=== PATIENT | female | born 1960 | race Caucasian/White ===

== ENCOUNTER 2020-08-16 22:27 | Emergency (ER) | payer BC, OTHER ==
[~2020-08-16] VITALS: Ht 162.6 cm; Wt 69.8 kg
--- NOTE | ~2020-08-16 | EMS ---
[address] [address] EMS Patient Care Report Name: VIANEY HAIR Room #: REG BEAU Gutierres#: [id number] Admission: 08/16/20 Attend Phys: Discharge: Date of : 58 Report #: [id number] THIS REPORT FOR: //name// Report Transmitted: 08/16/2020 23:59 EMS Care Summary [facility] MED-ACT Incident [id number] @ 08/16/2020 21:51 Incident Location [address] [place] [address] Patient VIANEY BARRIENTOS Female, 60 Years 1960 Patient Address [address] [address] Patient History Hypertension (HTN), Patient Allergies No known allergies, Patient Medications Metoprolol, Chief Complaint syncope episode Disposition Transported No Lights/[place] Dispatch Reason Unconscious/Fainting Transported To [facility] Narrative EMS was called to the scene of a person who had a syncope episode. Upon arrival the patient was lying on the kitchen floor conscious and breathing. On scene FD advised their initial BP was in the 70's. Family advised she had one cocktail and a couple of hits off of a blunt, then an hour later was walking [facility] [address] [place] [address] EMS Patient Care Report Name: VIANEY HAIR Room #: REG BEAU Gutierres#: [id number] Admission: 08/16/20 Attend Phys: Discharge: Date of : 58 Report #: [id number] through the kitchen and just passed out. The patient advised she was dizzy. EMS assessed the patient and found she had no radial pulse. EMS loaded her on the cot and took her to the ambulance. EMS established a 18g IV in the right AC and performed a 12 lead ECG with no ST elevation found. EMS provided an ice pack for the patient's forehead and reassessed her. EMS started a fluid bolus of NS for hypotension and transported the patient to [facility] for further evaluation. Initial Vitals @22:23P: 82,R: 18,BP: 100/64,Pain: 6/10,GCS: 15,SpO2: 98,Revised Trauma: 12,AL Suspected: false @22:17P: 82,R: 18,BP: 95/58,Pain: 6/10,GCS: 15,SpO2: 94,Revised Trauma: 12,AL Suspected: false @22:16P: 78,R: 18,Pain: 6/10,GCS: 15,SpO2: 95,AL Suspected: false @22:11P: 84,R: 18,BP: 81/49,Pain: 6/10,GCS: 15,SpO2: 97,Revised Trauma: 11, @PTAP: 85,R: 18,BP: 79/52,Pain: 6/10,GCS: 15,Glucose: 112,SpO2: 96,Revised Trauma: 11,AL Suspected: false Assessments @22:00MENTAL:No Abnormalities,SKIN:No Abnormalities,HEENT:Head/Face: Swelling,Neck/Airway: No Abnormalities,LUNG SOUNDS:General: No Abnormalities,Left Upper: No Abnormalities,Right Upper: No Abnormalities,Left Lower: No Abnormalities,Right Lower: No Abnormalities,ABDOMEN:General: No Abnormalities,Left Upper: No Abnormalities,Right Upper: No Abnormalities,Left Lower: No Abnormalities,Right Lower: No Abnormalities,PELVIS//GI:No Abnormalities,EXTREMITIES:Left Arm: No Abnormalities,Right Arm: No Abnormalities,Left Leg: No Abnormalities,Right Leg: No Abnormalities,PULSE:NEURO:No Abnormalities, Impression Syncope / Fainting Procedures @22:15Normal Saline (.9% NaCl) 200cc (18 ga) Site: Antecubital-RightResponse: ImprovedSucceeded@22:1512-Lead ECG@22:1612-Lead ECG@22:00ALS AssessmentResponse: 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,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,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: 85,RR: 18 R,SPO2: 96 Ox,ETCO2: ,B,PAIN: 6,GCS: 15, 21:49,Call Received 21:49,Psap Call 21:51,Dispatched 21:52,En Route 21:59,On Scene 22:00,At Patient 22:00,ALS Assessment,Response: 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, [facility] [address] [address] EMS Patient Care Report Name: JSVIANEY COOMBS Room #: REG Nenita#: [id number] Admission: 08/16/20 Attend Phys: Discharge: Date of : 58 Report #: [id number] 22:11,BP: 81/49 M,PULSE: 84,RR: 18 R,SPO2: 97 Ox,ETCO2: ,BG: ,PAIN: 6,GCS: 15, 22:15,Normal Saline (.9% NaCl) 200cc 18 ga Site: Antecubital-Right,Response: ImprovedSucceeded, 22:15,12-Lead ECG, 22:16,12-Lead ECG, 22:16,BP: / M,PULSE: 78,RR: 18 R,SPO2: 95 Ox,ETCO2: ,BG: ,PAIN: 6,GCS: 15, 22:17,BP: 95/58 M,PULSE: 82,RR: 18 R,SPO2: 94 Ox,ETCO2: ,BG: ,PAIN: 6,GCS: 15, 22:17,Depart Scene 22:23,At Destination 22:23,BP: 100/64 M,PULSE: 82,RR: 18 R,SPO2: 98 Ox,ETCO2: ,BG: ,PAIN: 6,GCS: 15, 22:43,Call Closed Disclaimer v1.1 Copyright 2020 [employer] This EMS Care Summary contains data elements from the applicable legal record (which may be displayed differently). It is designed to provide pertinent information for the following purposes: continuity of care, clinical quality, and state data reporting. The complete legal record is available to ED staff and administrators of the receiving hospital in [employer]'s Patient Tracker. All data is provided "as is."
--- NOTE | ~2020-08-16 | EMS ---
[address] [address] EMS Patient Care Report Name: VIANEY HAIR Room #: REG BEAU Gutierres#: [id number] Admission: 08/16/20 Attend Phys: Discharge: Date of : 58 Report #: [id number] THIS REPORT FOR: //name// Report Transmitted: 08/16/2020 23:07 EMS Care Summary [facility] MED-ACT Incident [id number] @ 08/16/2020 21:51 Incident Location [address] [place] [address] Patient VIANEY BARRIENTOS Female, 60 Years 1960 Patient Address [address] [address] Patient History Hypertension (HTN), Patient Allergies No known allergies, Patient Medications Metoprolol, Chief Complaint syncope episode Disposition Transported No Lights/[place] Dispatch Reason Unconscious/Fainting Transported To [facility] Narrative EMS was called to the scene of a person who had a syncope episode. Upon arrival the patient was lying on the kitchen floor conscious and breathing. On scene FD advised their initial BP was in the 70's. Family advised she had one cocktail and a couple of hits off of a blunt, then an hour later was walking [facility] [address] [place] [address] EMS Patient Care Report Name: VIANEY HAIR Room #: REG BEAU Gutierres#: [id number] Admission: 08/16/20 Attend Phys: Discharge: Date of : 58 Report #: [id number] through the kitchen and just passed out. The patient advised she was dizzy. EMS assessed the patient and found she had no radial pulse. EMS loaded her on the cot and took her to the ambulance. EMS established a 18g IV in the right AC and performed a 12 lead ECG with no ST elevation found. EMS provided an ice pack for the patient's forehead and reassessed her. EMS started a fluid bolus of NS for hypotension and transported the patient to [facility] for further evaluation. Initial Vitals @22:23P: 82,R: 18,BP: 100/64,Pain: 6/10,GCS: 15,SpO2: 98,Revised Trauma: 12,FL Suspected: false @22:17P: 82,R: 18,BP: 95/58,Pain: 6/10,GCS: 15,SpO2: 94,Revised Trauma: 12,FL Suspected: false @22:16P: 78,R: 18,Pain: 6/10,GCS: 15,SpO2: 95,FL Suspected: false @22:11P: 84,R: 18,BP: 81/49,Pain: 6/10,GCS: 15,SpO2: 97,Revised Trauma: 11, @PTAP: 85,R: 18,BP: 79/52,Pain: 6/10,GCS: 15,Glucose: 112,SpO2: 96,Revised Trauma: 11,FL Suspected: false Assessments @22:00MENTAL:No Abnormalities,SKIN:No Abnormalities,HEENT:Head/Face: Swelling,Neck/Airway: No Abnormalities,LUNG SOUNDS:General: No Abnormalities,Left Upper: No Abnormalities,Right Upper: No Abnormalities,Left Lower: No Abnormalities,Right Lower: No Abnormalities,ABDOMEN:General: No Abnormalities,Left Upper: No Abnormalities,Right Upper: No Abnormalities,Left Lower: No Abnormalities,Right Lower: No Abnormalities,PELVIS//GI:No Abnormalities,EXTREMITIES:Left Arm: No Abnormalities,Right Arm: No Abnormalities,Left Leg: No Abnormalities,Right Leg: No Abnormalities,PULSE:NEURO:No Abnormalities, Impression Syncope / Fainting Procedures @22:15Normal Saline (.9% NaCl) 200cc (18 ga) Site: Antecubital-RightResponse: ImprovedSucceeded@22:1512-Lead ECG@22:1612-Lead ECG@22:00ALS AssessmentResponse: 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 [address] EMS Patient Care Report Name: VIANEY HAIR Room #: REG BEAU Gutierres#: [id number] Admission: 08/16/20 Attend Phys: Discharge: Date of : 58 Report #: [id number] 22:11,BP: 81/49 M,PULSE: 84,RR: 18 R,SPO2: 97 Ox,ETCO2: ,BG: ,PAIN: 6,GCS: 15, 22:15,Normal Saline (.9% NaCl) 200cc 18 ga Site: Antecubital-Right,Response: ImprovedSucceeded, 22:15,12-Lead ECG, 22:16,12-Lead ECG, 22:16,BP: / M,PULSE: 78,RR: 18 R,SPO2: 95 Ox,ETCO2: ,BG: ,PAIN: 6,GCS: 15, 22:17,BP: 95/58 M,PULSE: 82,RR: 18 R,SPO2: 94 Ox,ETCO2: ,BG: ,PAIN: 6,GCS: 15, 22:17,Depart Scene 22:23,At Destination 22:23,BP: 100/64 M,PULSE: 82,RR: 18 R,SPO2: 98 Ox,ETCO2: ,BG: ,PAIN: 6,GCS: 15, 22:43,Call Closed Disclaimer v1.1 Copyright 2020 [employer] This EMS Care Summary contains data elements from the applicable legal record (which may be displayed differently). It is designed to provide pertinent information for the following purposes: continuity of care, clinical quality, and state data reporting. The complete legal record is available to ED staff and administrators of the receiving hospital in [employer]'s Patient Tracker. All data is provided "as is."
[2020-08-16] MEDS ORDERED: BENICAR20 MG PO (22:36)
[2020-08-17 00:03] LABS: ABSOLUTE NEUTROPHILS 4.4 thou/uL (1.4-8.2); BASOPHILS 0.6 % (0.0-2.0); HEMATOCRIT 34.4 % (37.0-47.0); LYMPHOCYTES 21.5 % (24.0-44.0); MCH 32.9 pg (26.0-34.0); MCHC 34.9 g/dL (28.0-37.0); MONOCYTES 10.2 % (1.0-8.0); PLATELET COUNT 188 thou/uL (150-400); POLYS 66.7 % (36.0-66.0); RBC 3.66 mil/uL (4.20-5.00); RDW 13.4 % (10.5-14.5); WBC 6.7 thou/uL (4.0-11.0)
[2020-08-17 00:11] LABS: ANION GAP 12 mmol/L (7-16); BUN 18 mg/dL (7-18); CALCIUM 8.2 mg/dL (8.5-10.1); CHLORIDE 95 mmol/L (98-107); CO2 25 mmol/L (21-32); CREATININE 1.1 mg/dL (0.6-1.0); SODIUM 132 mmol/L (136-145)
[2020-08-17 00:19] LABS: GLUCOSE 93 mg/dL (74-106)
[2020-08-17 00:20] LABS: TROPONIN-I <0.06 ng/mL (<0.06)
[2020-08-17 01:11] VITALS: BP 124/76
--- NOTE | 2020-08-18 07:42 | EKG ---
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[facility] : 1960 Requested By: Luke Tobias Order Number: [id number] MD: Yvon Shannon Measurements Intervals [place] Rate: 82 P: 69 OR: 177 QRS: -19 QRSD: 108 T: 49 QT: 413 QTc: 483 Interpretive Statements Sinus rhythm Borderline left axis deviation Low voltage RSR' in V1 or V2, right VCD or RVH Borderline T abnormalities, anterior leads Borderline prolonged QT interval No previous ECG available for comparison Electronically Signed On 08-18-2020 7:42:37 CDT by Yvon Shannon [email or web address] <ELECTRONICALLY SIGNED> By: Yvon Shannon MD, FAC 08/18/20 0742 0002 0002 Yvon Shannon MD, [facility] /EPI
== END 2020-08-17 01:05 | disposition home or self-care (01) ==
LOC: ER 22:27
PROVIDERS: Emergency Medicine
DX: S09.90XA Unspecified injury of head, initial encounter (principal); R55 Syncope and collapse; E87.6 Hypokalemia; I10 Essential (primary) hypertension; Z79.899 Other long term (current) drug therapy; W18.39XA Other fall on same level, initial encounter; Y93.01 Activity, walking, marching and hiking; Y92.098 Other place in other non-institutional residence as the place of occurrence of the external cause; Y99.8 Other external cause status